=== PATIENT | male | born 1945 | race Caucasian/White ===

== ENCOUNTER 2017-10-01 15:57 | Inpatient (IN) | payer MEDICARE ==
[~2017-10-01] VITALS: Ht 170.2 cm; Wt 89.8 kg
[~2017-10-01 15:57] MED LIST: ACID1TAB3 PO; AMIO100T4 PO; AMIO200T42 PO; AMOX1TAB61 PO; APIX5TAB PO; ASPI-515 PO; ATOR40TA78 PO; CEFD300C37 PO; DOXY100T PO; ESOM40CA PO; FURO40TA6 PO; GABA-826 PO; HYDR-3307 PO; IBUP-1221 PO; LISI-170 PO; METO25TA35 PO; METO50TA82 PO; POTA20TA6 PO; PRED10TA PO; PRED20TA PO; losartin PO; morphine PO
[2017-10-01] MEDS ORDERED: ONDANSETRON 2MG/ML, 2ML IVPush ONE (16:30)
[2017-10-01] MEDS ORDERED: SODIUM CHLORIDE FLUSH 10ML SYR IVF ONE ×2 (16:30→18:00)
[2017-10-01] MEDS ORDERED: PLEASE ENTER HEIGHT AND WEIGHT MC SCH (16:30)
[2017-10-01 16:42] LABS: MEAN CORPUSCULAR HEMOGLOBIN 31.5 pg (27.5-34.5); MEAN CORPUSCULAR HGB CONC 32.5 g/dL (33.2-36.2); MEAN CORPUSCULAR VOLUME 97.1 fL (81-97); MEAN PLATELET VOLUME 9.3 fL (7.4-10.4); PLATELET COUNT 270 x10^3/uL (130-400); RED BLOOD COUNT 3.33 x10^6/uL (4.38-5.82); RED CELL DISTRIBUTION WIDTH 17.6 % (9.4-14.8)
[2017-10-01] MEDS ORDERED: NALOXONE 0.4 MG/ML, 1ML ONE (16:44)
[2017-10-01] MEDS ORDERED: ONDANSETRON 2MG/ML, 2ML ONE (16:44)
[2017-10-01 16:50] LABS: ALBUMIN 3.1 g/dL (3.4-5.0); ANION GAP 8 mmol/L (5-15); CALCIUM 7.8 mg/dL (8.5-10.1); CHLORIDE 104 mmol/L (98-107)
[2017-10-01 16:57] LABS: CREATININE 2.81 mg/dL (0.7-1.3)
[2017-10-01 16:58] LABS: BASOPHILS # (AUTO) 0.02 x10^3/uL (0-0.1); BASOPHILS % (AUTO) 0 % (0-1); EOSINOPHILS # (AUTO) 0.09 x10^3/uL (0-0.4); EOSINOPHILS % (AUTO) 1 % (1-7); LYMPHOCYTES # (AUTO) 2.01 x10^3/uL (1-3.4); LYMPHOCYTES % (AUTO) 11 % (22-44); MD SCAN; MONOCYTES % (AUTO) 2 % (2-9); NEUTROPHILS # (AUTO) 15.19 x10^3/uL (1.8-6.8); NEUTROPHILS % (AUTO) 86 % (42-75)
[2017-10-01 17:02] LABS: INTERNATIONAL NORMALIZED RATIO 0.94 (0.93-1.1); PROTHROMBIN TIME 9.7 Seconds (9.6-11.5)
[2017-10-01] MEDS ORDERED: METO25TA91 PO (17:27)
[2017-10-01] MEDS ORDERED: MORP15TA3 PO (17:31)
[2017-10-01] MEDS ORDERED: ALBU8.5H8 INH (17:32)
[2017-10-01] MEDS ORDERED: RANI150T8 PO (17:34)
[2017-10-01] MEDS ORDERED: SODIUM CHLORIDE 0.9% 1,000 ML IV ONE (17:55)
[2017-10-01] MEDS ORDERED: ONDANSETRON ODT 4 MG PO PRN (18:30)
[2017-10-01] MEDS ORDERED: DOCUSATE 100 MG CAPSULE PO PRN (18:30)
[2017-10-01] MEDS ORDERED: LIDODERM 5% PATCH TD PRN (18:30)
[2017-10-01] MEDS ORDERED: ALBUTEROL/IPRATROPIUM 2.5MG/0.5MG, 3 ML NPPB SCH (19:00)
[2017-10-01] MEDS ORDERED: PHARMACY MAY ADJ FOR RENAL FX MC PRN (19:30)
[2017-10-01] MEDS: SODIUM CHLORIDE 0.9% 1,000 ML IV SCH (19:45)
[2017-10-01] MEDS: APIXABAN 5 MG TABLET PO SCH (19:45)
[2017-10-01] MEDS: FAMOTIDINE 20 MG TABLET PO SCH (19:45)
[2017-10-01] MEDS: ATORVASTATIN 40 MG TABLET PO SCH (19:45)
[2017-10-01] MEDS: PIPERACILLIN/TAZO/PMX 3.375GM 50 ML IV SCH (19:49)
[2017-10-01 20:12] VITALS: BP 89/55
[2017-10-01] MEDS ORDERED: ALBUTEROL/IPRATROPIUM 2.5MG/0.5MG, 3 ML NPPB PRN (21:00)
[2017-10-01] MEDS ORDERED: SODIUM CHLORIDE 0.9%, 500ML IVBOLUS ONE (22:00)
[2017-10-01 22:38] VITALS: BP 98/61
[2017-10-01 22:57] LABS: TROPONIN I 0.034 ng/mL (0.000-0.045)
[2017-10-02] VITALS (7 sets, daily range): BP systolic 86–119; BP diastolic 48–69
[2017-10-02] MEDS: SODIUM CHLORIDE 0.9% 1,000 ML IV SCH ×2 (04:26→17:00)
[2017-10-02] MEDS: PIPERACILLIN/TAZO/PMX 3.375GM 50 ML IV SCH ×3 (04:26→21:38)
[2017-10-02 05:20] LABS: BASOPHILS # (AUTO) 0.15 x10^3/uL (0-0.1); BASOPHILS % (AUTO) 1 % (0-1); EOSINOPHILS # (AUTO) 0.06 x10^3/uL (0-0.4); EOSINOPHILS % (AUTO) 1 % (1-7); LYMPHOCYTES # (AUTO) 1.58 x10^3/uL (1-3.4); LYMPHOCYTES % (AUTO) 13 % (22-44); MD NO; MEAN CORPUSCULAR HEMOGLOBIN 32.3 pg (27.5-34.5); MEAN CORPUSCULAR HGB CONC 32.8 g/dL (33.2-36.2); MEAN CORPUSCULAR VOLUME 98.3 fL (81-97); MEAN PLATELET VOLUME 9.1 fL (7.4-10.4); MONOCYTES # (AUTO) 0.95 x10^3/uL (0.2-0.8); MONOCYTES % (AUTO) 8 % (2-9); NEUTROPHILS % (AUTO) 78 % (42-75); PLATELET COUNT 236 x10^3/uL (130-400); RED CELL DISTRIBUTION WIDTH 17.1 % (9.4-14.8)
[2017-10-02 05:30] LABS: ALBUMIN 2.6 g/dL (3.4-5.0); CALCIUM 7.8 mg/dL (8.5-10.1); CHLORIDE 108 mmol/L (98-107); TROPONIN I 0.022 ng/mL (0.000-0.045)
[2017-10-02 05:35] LABS: ALANINE AMINOTRANSFERASE 26 U/L (12-78); ALKALINE PHOSPHATASE 40 U/L (45-117); ANION GAP 7 mmol/L (5-15); BILIRUBIN,TOTAL 0.8 mg/dL (0.2-1.0); CREATININE 2.32 mg/dL (0.7-1.3); TOTAL PROTEIN 5.6 g/dL (6.4-8.2)
[2017-10-02] MEDS: ASPIRIN 81 MG TABLET EC PO SCH (09:22)
[2017-10-02] MEDS: APIXABAN 5 MG TABLET PO SCH ×2 (09:22→21:38)
[2017-10-02] MEDS: FAMOTIDINE 20 MG TABLET PO SCH (09:22)
[2017-10-02 09:45] LABS: ANION GAP 8 mmol/L (5-15); CALCIUM 7.5 mg/dL (8.5-10.1); CHLORIDE 110 mmol/L (98-107); CREATININE 2.03 mg/dL (0.7-1.3)
[2017-10-02] MEDS ORDERED: SODIUM CHLORIDE 0.9%, 500ML IVBOLUS ONE (13:30)
[2017-10-02] MEDS: ATORVASTATIN 40 MG TABLET PO SCH (21:37)
[2017-10-03 00:47] VITALS: BP 129/64
[2017-10-03] MEDS: SODIUM CHLORIDE 0.9% 1,000 ML IV SCH ×3 (01:57→20:05)
[2017-10-03] MEDS: PIPERACILLIN/TAZO/PMX 3.375GM 50 ML IV SCH ×3 (04:45→20:00)
[2017-10-03 05:48] LABS: BASOPHILS # (AUTO) 0.06 x10^3/uL (0-0.1); BASOPHILS % (AUTO) 1 % (0-1); EOSINOPHILS # (AUTO) 0.04 x10^3/uL (0-0.4); EOSINOPHILS % (AUTO) 0 % (1-7); LYMPHOCYTES # (AUTO) 1.22 x10^3/uL (1-3.4); LYMPHOCYTES % (AUTO) 10 % (22-44); MD NO; MEAN CORPUSCULAR HEMOGLOBIN 32.4 pg (27.5-34.5); MEAN CORPUSCULAR HGB CONC 33.2 g/dL (33.2-36.2); MEAN CORPUSCULAR VOLUME 97.8 fL (81-97); MEAN PLATELET VOLUME 9.5 fL (7.4-10.4); MONOCYTES # (AUTO) 0.87 x10^3/uL (0.2-0.8); MONOCYTES % (AUTO) 7 % (2-9); NEUTROPHILS # (AUTO) 9.49 x10^3/uL (1.8-6.8); NEUTROPHILS % (AUTO) 81 % (42-75); PLATELET COUNT 171 x10^3/uL (130-400); RED BLOOD COUNT 2.41 x10^6/uL (4.38-5.82); RED CELL DISTRIBUTION WIDTH 17.2 % (9.4-14.8)
[2017-10-03 06:10] LABS: ANION GAP 8 mmol/L (5-15); CHLORIDE 112 mmol/L (98-107)
[2017-10-03 06:13] LABS: CALCIUM 7.8 mg/dL (8.5-10.1); CREATININE 1.32 mg/dL (0.7-1.3)
[2017-10-03 08:15] VITALS: BP 138/77
[2017-10-03] MEDS: APIXABAN 5 MG TABLET PO SCH ×2 (08:43→20:01)
[2017-10-03] MEDS: ASPIRIN 81 MG TABLET EC PO SCH (08:43)
[2017-10-03] MEDS: FAMOTIDINE 20 MG TABLET PO SCH (08:43)
[2017-10-03 13:25] VITALS: BP 132/75
[2017-10-03 19:29] VITALS: BP 141/79
[2017-10-03] MEDS ORDERED: ALBUTEROL SULFATE 2.5 MG/3 ML NPPB PRN (20:00)
[2017-10-03] MEDS: AMIODARONE 200 MG TABLET PO SCH (20:00)
[2017-10-03] MEDS: ATORVASTATIN 40 MG TABLET PO SCH (20:01)
[2017-10-03] MEDS: METOPROLOL SUCCINATE 25 MG TAB.ER.24H PO SCH (20:01)
[2017-10-03 23:52] LABS: OCCULT BLOOD POSITIVE (NEGATIVE)
[2017-10-04 00:40] VITALS: BP 145/70
[2017-10-04] MEDS: SODIUM CHLORIDE 0.9% 1,000 ML IV SCH ×2 (04:08→17:30)
[2017-10-04] MEDS: PIPERACILLIN/TAZO/PMX 3.375GM 50 ML IV SCH (04:08)
[2017-10-04 05:10] LABS: BASOPHILS # (AUTO) 0.08 x10^3/uL (0-0.1); BASOPHILS % (AUTO) 1 % (0-1); EOSINOPHILS # (AUTO) 0.03 x10^3/uL (0-0.4); EOSINOPHILS % (AUTO) 0 % (1-7); LYMPHOCYTES # (AUTO) 1.23 x10^3/uL (1-3.4); LYMPHOCYTES % (AUTO) 11 % (22-44); MD NO; MEAN CORPUSCULAR HEMOGLOBIN 31.9 pg (27.5-34.5); MEAN CORPUSCULAR HGB CONC 32.8 g/dL (33.2-36.2); MEAN CORPUSCULAR VOLUME 97.2 fL (81-97); MEAN PLATELET VOLUME 9.1 fL (7.4-10.4); MONOCYTES # (AUTO) 0.93 x10^3/uL (0.2-0.8); MONOCYTES % (AUTO) 8 % (2-9); NEUTROPHILS % (AUTO) 80 % (42-75); PLATELET COUNT 223 x10^3/uL (130-400); RED BLOOD COUNT 2.38 x10^6/uL (4.38-5.82); RED CELL DISTRIBUTION WIDTH 17.2 % (9.4-14.8)
[2017-10-04 05:12] LABS: ANION GAP 4 mmol/L (5-15); CALCIUM 7.8 mg/dL (8.5-10.1); CHLORIDE 111 mmol/L (98-107); CREATININE 0.96 mg/dL (0.7-1.3)
[2017-10-04 06:55] VITALS: BP 128/60
[2017-10-04] MEDS: APIXABAN 5 MG TABLET PO SCH (09:10)
[2017-10-04] MEDS: ASPIRIN 81 MG TABLET EC PO SCH (09:11)
[2017-10-04] MEDS: AMIODARONE 200 MG TABLET PO SCH ×2 (09:12→21:14)
[2017-10-04] MEDS: FAMOTIDINE 20 MG TABLET PO SCH (09:12)
[2017-10-04] MEDS: METOPROLOL SUCCINATE 25 MG TAB.ER.24H PO SCH ×2 (09:12→21:14)
[2017-10-04 11:21] LABS: BASOPHILS # (AUTO) 0.03 x10^3/uL (0-0.1); BASOPHILS % (AUTO) 0 % (0-1); EOSINOPHILS # (AUTO) 0.04 x10^3/uL (0-0.4); EOSINOPHILS % (AUTO) 0 % (1-7); LYMPHOCYTES # (AUTO) 0.95 x10^3/uL (1-3.4); LYMPHOCYTES % (AUTO) 8 % (22-44); MD NO; MEAN CORPUSCULAR HEMOGLOBIN 31.5 pg (27.5-34.5); MEAN CORPUSCULAR HGB CONC 32.4 g/dL (33.2-36.2); MEAN CORPUSCULAR VOLUME 97.1 fL (81-97); MEAN PLATELET VOLUME 8.7 fL (7.4-10.4); MONOCYTES # (AUTO) 0.68 x10^3/uL (0.2-0.8); MONOCYTES % (AUTO) 6 % (2-9); NEUTROPHILS # (AUTO) 10.31 x10^3/uL (1.8-6.8); NEUTROPHILS % (AUTO) 86 % (42-75); PLATELET COUNT 252 x10^3/uL (130-400); RED BLOOD COUNT 2.51 x10^6/uL (4.38-5.82); RED CELL DISTRIBUTION WIDTH 17.2 % (9.4-14.8)
[2017-10-04] MEDS: AMPICILLIN/SULBACTAM 3 GM in SODIUM CHLORIDE 0.9% 100 ML IV SCH ×2 (11:42→20:23)
[2017-10-04] MEDS: TAMSULOSIN 0.4 MG CAP.ER.24H PO SCH (11:42)
[2017-10-04 11:53] LABS: FOLATE LEVEL 9.3 ng/mL (3.1-17.5)
[2017-10-04 12:10] LABS: CULTURE INDICATED? YES; MICROSCOPIC INDICATED
[2017-10-04] MEDS ORDERED: BISACODYL 5 MG EC TABLET PO ONE (14:00)
[2017-10-04 14:18] VITALS: BP 126/69
[2017-10-04 18:00] LABS: BASOPHILS # (AUTO) 0.04 x10^3/uL (0-0.1); BASOPHILS % (AUTO) 0 % (0-1); EOSINOPHILS % (AUTO) 0 % (1-7); LYMPHOCYTES # (AUTO) 0.88 x10^3/uL (1-3.4); LYMPHOCYTES % (AUTO) 8 % (22-44); MD NO; MEAN CORPUSCULAR HEMOGLOBIN 32.2 pg (27.5-34.5); MEAN CORPUSCULAR HGB CONC 33.4 g/dL (33.2-36.2); MEAN CORPUSCULAR VOLUME 96.5 fL (81-97); MEAN PLATELET VOLUME 8.6 fL (7.4-10.4); MONOCYTES # (AUTO) 0.16 x10^3/uL (0.2-0.8); MONOCYTES % (AUTO) 2 % (2-9); NEUTROPHILS % (AUTO) 90 % (42-75); PLATELET COUNT 265 x10^3/uL (130-400); RED BLOOD COUNT 2.53 x10^6/uL (4.38-5.82); RED CELL DISTRIBUTION WIDTH 16.4 % (9.4-14.8)
[2017-10-04 19:11] VITALS: BP 178/94
[2017-10-04 21:12] VITALS: BP 149/65
[2017-10-04] MEDS: ATORVASTATIN 40 MG TABLET PO SCH (21:13)
[2017-10-05 00:59] VITALS: BP 123/69
[2017-10-05 03:19] LABS: MEAN CORPUSCULAR HEMOGLOBIN 31.3 pg (27.5-34.5); MEAN CORPUSCULAR HGB CONC 32.7 g/dL (33.2-36.2); MEAN CORPUSCULAR VOLUME 95.8 fL (81-97); MEAN PLATELET VOLUME 8.6 fL (7.4-10.4); PLATELET COUNT 246 x10^3/uL (130-400); RED BLOOD COUNT 2.25 x10^6/uL (4.38-5.82)
[2017-10-05 03:25] LABS: ANION GAP 7 mmol/L (5-15); CALCIUM 7.5 mg/dL (8.5-10.1); CHLORIDE 113 mmol/L (98-107); CREATININE 0.91 mg/dL (0.7-1.3)
[2017-10-05] MEDS: AMPICILLIN/SULBACTAM 3 GM in SODIUM CHLORIDE 0.9% 100 ML IV SCH ×4 (03:43→22:56)
[2017-10-05] MEDS: SODIUM CHLORIDE 0.9% 1,000 ML IV SCH ×2 (03:43→17:08)
[2017-10-05 03:51] LABS: BASOPHILS # (AUTO) 0.13 x10^3/uL (0-0.1); BASOPHILS % (AUTO) 1 % (0-1); EOSINOPHILS # (AUTO) 0.02 x10^3/uL (0-0.4); EOSINOPHILS % (AUTO) 0 % (1-7); LYMPHOCYTES # (AUTO) 1.79 x10^3/uL (1-3.4); LYMPHOCYTES % (AUTO) 18 % (22-44); MD SCAN; MONOCYTES # (AUTO) 1.04 x10^3/uL (0.2-0.8); MONOCYTES % (AUTO) 10 % (2-9); NEUTROPHILS # (AUTO) 7.12 x10^3/uL (1.8-6.8); NEUTROPHILS % (AUTO) 71 % (42-75)
[2017-10-05] MEDS: ACETAMINOPHEN 325 MG TABLET PO PRN ×3 (06:10→22:56)
[2017-10-05] MEDS: METOPROLOL SUCCINATE 25 MG TAB.ER.24H PO SCH ×2 (08:59→20:10)
[2017-10-05] MEDS: AMIODARONE 200 MG TABLET PO SCH ×2 (08:59→20:10)
[2017-10-05] MEDS: FAMOTIDINE 20 MG TABLET PO SCH ×2 (09:00→20:10)
[2017-10-05] MEDS: TAMSULOSIN 0.4 MG CAP.ER.24H PO SCH (09:00)
[2017-10-05 09:07] VITALS: BP 161/77
[2017-10-05 10:53] LABS: BASOPHILS # (AUTO) 0.02 x10^3/uL (0-0.1); BASOPHILS % (AUTO) 0 % (0-1); EOSINOPHILS # (AUTO) 0.05 x10^3/uL (0-0.4); EOSINOPHILS % (AUTO) 1 % (1-7); LYMPHOCYTES # (AUTO) 1.39 x10^3/uL (1-3.4); LYMPHOCYTES % (AUTO) 13 % (22-44); MD NO; MEAN CORPUSCULAR HEMOGLOBIN 31.9 pg (27.5-34.5); MEAN CORPUSCULAR VOLUME 96.8 fL (81-97); MEAN PLATELET VOLUME 8.6 fL (7.4-10.4); MONOCYTES # (AUTO) 0.92 x10^3/uL (0.2-0.8); MONOCYTES % (AUTO) 8 % (2-9); NEUTROPHILS # (AUTO) 8.61 x10^3/uL (1.8-6.8); NEUTROPHILS % (AUTO) 78 % (42-75); PLATELET COUNT 252 x10^3/uL (130-400); RED BLOOD COUNT 2.39 x10^6/uL (4.38-5.82); RED CELL DISTRIBUTION WIDTH 16.5 % (9.4-14.8)
[2017-10-05 13:37] VITALS: BP 162/88
[2017-10-05] MEDS: GOLYTELY 4,000ML ORAL.SOL PO SCH (18:37)
[2017-10-05 19:03] LABS: MEAN CORPUSCULAR HEMOGLOBIN 32.3 pg (27.5-34.5); MEAN CORPUSCULAR HGB CONC 33.3 g/dL (33.2-36.2); MEAN CORPUSCULAR VOLUME 97.1 fL (81-97); PLATELET COUNT 280 x10^3/uL (130-400); RED BLOOD COUNT 2.55 x10^6/uL (4.38-5.82); RED CELL DISTRIBUTION WIDTH 17.5 % (9.4-14.8)
[2017-10-05 19:39] VITALS: BP 170/82
[2017-10-05 19:44] LABS: MD MORPH REVIEW ONLY
[2017-10-05 19:45] LABS: ANISOCYTOSIS 2+; BASOPHILS # (AUTO) 0.03 x10^3/uL (0-0.1); BASOPHILS % (AUTO) 0 % (0-1); EOSINOPHILS % (AUTO) 0 % (1-7); LYMPHOCYTES # (AUTO) 1.17 x10^3/uL (1-3.4); LYMPHOCYTES % (AUTO) 14 % (22-44); MONOCYTES % (AUTO) 4 % (2-9); NEUTROPHILS # (AUTO) 7.06 x10^3/uL (1.8-6.8); NEUTROPHILS % (AUTO) 83 % (42-75); POLYCHROMASIA 1+
[2017-10-05 19:46] LABS: <PLATELET ESTIMATE> ADEQUATE; <PLT MORPHOLOGY> NORMAL PLT MORPH; SCHISTOCYTES 1+; SPHEROCYTES 1+
[2017-10-05] MEDS: ATORVASTATIN 40 MG TABLET PO SCH (20:10)
[2017-10-06 02:59] VITALS: BP 160/80
[2017-10-06 03:13] LABS: BASOPHILS # (AUTO) 0.02 x10^3/uL (0-0.1); BASOPHILS % (AUTO) 0 % (0-1); EOSINOPHILS # (AUTO) 0.01 x10^3/uL (0-0.4); EOSINOPHILS % (AUTO) 0 % (1-7); LYMPHOCYTES % (AUTO) 18 % (22-44); MD NO; MEAN CORPUSCULAR HEMOGLOBIN 31.9 pg (27.5-34.5); MEAN CORPUSCULAR HGB CONC 32.8 g/dL (33.2-36.2); MEAN CORPUSCULAR VOLUME 97.3 fL (81-97); MEAN PLATELET VOLUME 8.3 fL (7.4-10.4); MONOCYTES # (AUTO) 0.95 x10^3/uL (0.2-0.8); MONOCYTES % (AUTO) 10 % (2-9); NEUTROPHILS % (AUTO) 72 % (42-75); PLATELET COUNT 267 x10^3/uL (130-400); RED BLOOD COUNT 2.49 x10^6/uL (4.38-5.82); RED CELL DISTRIBUTION WIDTH 17.3 % (9.4-14.8)
[2017-10-06] MEDS: AMPICILLIN/SULBACTAM 3 GM in SODIUM CHLORIDE 0.9% 100 ML IV SCH ×4 (05:09→23:19)
[2017-10-06] MEDS: SODIUM CHLORIDE 0.9% 1,000 ML IV SCH ×2 (05:10→17:07)
[2017-10-06 05:30] LABS: ANION GAP 6 mmol/L (5-15); CALCIUM 7.7 mg/dL (8.5-10.1); CHLORIDE 113 mmol/L (98-107)
[2017-10-06 05:31] LABS: CREATININE 0.99 mg/dL (0.7-1.3)
[2017-10-06] MEDS: GOLYTELY 4,000ML ORAL.SOL PO SCH (06:03)
[2017-10-06 06:12] LABS: MEAN CORPUSCULAR HGB CONC 33.1 g/dL (33.2-36.2); MEAN CORPUSCULAR VOLUME 96.8 fL (81-97); MEAN PLATELET VOLUME 8.9 fL (7.4-10.4); PLATELET COUNT 255 x10^3/uL (130-400); RED BLOOD COUNT 2.47 x10^6/uL (4.38-5.82); RED CELL DISTRIBUTION WIDTH 17.3 % (9.4-14.8)
[2017-10-06 06:13] LABS: MD YES
[2017-10-06 06:24] LABS: LYMPH#(MANUAL) 2.23 x10^3/uL (1-3.4); LYMPHS% (MANUAL) 21 % (22-44); METAMYELOCYTES# (MANUAL) 0.32 x10^3/uL (0-0); METAMYELOCYTES% (MANUAL) 3 % (0-1); MONOS#(MANUAL) 1.38 x10^3/uL (0.3-2.7); MONOS% (MANUAL) 13 % (2-9); SEG#(MANUAL) 6.68 x10^3/uL (1.8-6.8); SEGS% (MANUAL) 63 % (42-75)
[2017-10-06 06:26] LABS: <PLATELET ESTIMATE> ADEQUATE; <PLT MORPHOLOGY> NORMAL PLT MORPH; ANISOCYTOSIS 1+; POLYCHROMASIA 1+; SCHISTOCYTES 1+
[2017-10-06 08:22] VITALS: BP 189/92
[2017-10-06] MEDS ORDERED: LABETALOL 20 MG/4 ML ONE (10:00)
[2017-10-06] MEDS ORDERED: PROPOFOL 10 MG/ML, 20ML ONE (10:00)
[2017-10-06] MEDS ORDERED: LABETALOL 5MG/ML, 20ML ONE (10:00)
[2017-10-06] MEDS ORDERED: MORPHINE SULFATE 4 MG/ML, 1ML ONE (11:22)
[2017-10-06] MEDS ORDERED: ONDANSETRON 2MG/ML, 2ML IVPush PRN (11:30)
[2017-10-06] MEDS ORDERED: ALBUTEROL/IPRATROPIUM 2.5MG/0.5MG, 3 ML NPPB PRN (11:30)
[2017-10-06] MEDS ORDERED: ACETAMINOPHEN 325 MG TABLET PO PRN (11:30)
[2017-10-06] MEDS ORDERED: HYDROcodone/APAP 7.5-325MG/15ML UDC PO PRN (11:30)
[2017-10-06] MEDS ORDERED: hydrALAzine 20 MG/ML, 1ML IV PRN (11:30)
[2017-10-06] MEDS ORDERED: LABETALOL 5MG/ML, 20ML IV PRN (11:30)
[2017-10-06] MEDS ORDERED: FENTANYL PF 100 MCG/2ML IV PRN (11:30)
[2017-10-06] MEDS ORDERED: OXYcodone 5 MG/5 ML ORAL.SOL UDC PO PRN (11:30)
[2017-10-06] MEDS ORDERED: ACETAMINOPHEN 650 MG/20.3 ML UDC ONE (11:35)
[2017-10-06] MEDS ORDERED: OXYcodone 5 MG/5 ML ORAL.SOL UDC ONE (11:35)
[2017-10-06] MEDS: FAMOTIDINE 20 MG TABLET PO SCH ×2 (12:29→21:49)
[2017-10-06] MEDS: TAMSULOSIN 0.4 MG CAP.ER.24H PO SCH ×2 (12:29→21:49)
[2017-10-06] MEDS: AMIODARONE 200 MG TABLET PO SCH ×2 (12:29→21:48)
[2017-10-06] MEDS: METOPROLOL SUCCINATE 25 MG TAB.ER.24H PO SCH ×2 (12:29→21:50)
[2017-10-06 12:52] VITALS: BP 152/69
[2017-10-06 13:48] LABS: MEAN CORPUSCULAR HEMOGLOBIN 31.9 pg (27.5-34.5); MEAN CORPUSCULAR HGB CONC 32.8 g/dL (33.2-36.2); MEAN CORPUSCULAR VOLUME 97.4 fL (81-97); MEAN PLATELET VOLUME 8.1 fL (7.4-10.4); PLATELET COUNT 255 x10^3/uL (130-400); RED BLOOD COUNT 2.32 x10^6/uL (4.38-5.82); RED CELL DISTRIBUTION WIDTH 17.1 % (9.4-14.8)
[2017-10-06 14:18] LABS: BASOPHILS # (AUTO) 0.07 x10^3/uL (0-0.1); BASOPHILS % (AUTO) 1 % (0-1); EOSINOPHILS # (AUTO) 0.04 x10^3/uL (0-0.4); EOSINOPHILS % (AUTO) 0 % (1-7); LYMPHOCYTES # (AUTO) 1.57 x10^3/uL (1-3.4); LYMPHOCYTES % (AUTO) 18 % (22-44); MD SCAN; MONOCYTES # (AUTO) 0.82 x10^3/uL (0.2-0.8); MONOCYTES % (AUTO) 9 % (2-9); NEUTROPHILS # (AUTO) 6.44 x10^3/uL (1.8-6.8); NEUTROPHILS % (AUTO) 72 % (42-75)
[2017-10-06 19:03] LABS: BASOPHILS % (AUTO) 0 % (0-1); EOSINOPHILS % (AUTO) 0 % (1-7); LYMPHOCYTES # (AUTO) 0.67 x10^3/uL (1-3.4); LYMPHOCYTES % (AUTO) 8 % (22-44); MD NO; MEAN CORPUSCULAR HEMOGLOBIN 32.2 pg (27.5-34.5); MEAN CORPUSCULAR HGB CONC 33.2 g/dL (33.2-36.2); MEAN CORPUSCULAR VOLUME 96.9 fL (81-97); MEAN PLATELET VOLUME 7.9 fL (7.4-10.4); MONOCYTES # (AUTO) 0.04 x10^3/uL (0.2-0.8); MONOCYTES % (AUTO) 1 % (2-9); NEUTROPHILS # (AUTO) 7.68 x10^3/uL (1.8-6.8); NEUTROPHILS % (AUTO) 92 % (42-75); PLATELET COUNT 285 x10^3/uL (130-400); RED BLOOD COUNT 2.63 x10^6/uL (4.38-5.82); RED CELL DISTRIBUTION WIDTH 17.4 % (9.4-14.8)
[2017-10-06 20:48] VITALS: BP 168/84
[2017-10-06] MEDS: ATORVASTATIN 40 MG TABLET PO SCH (21:49)
[2017-10-06] MEDS: ACETAMINOPHEN 325 MG TABLET PO PRN (21:50)
[2017-10-07 01:30] VITALS: BP 143/71
[2017-10-07] MEDS: SODIUM CHLORIDE 0.9% 1,000 ML IV SCH (05:12)
[2017-10-07] MEDS: AMPICILLIN/SULBACTAM 3 GM in SODIUM CHLORIDE 0.9% 100 ML IV SCH ×4 (05:12→22:49)
[2017-10-07 05:15] LABS: ANION GAP 5 mmol/L (5-15); CALCIUM 7.3 mg/dL (8.5-10.1); CHLORIDE 111 mmol/L (98-107)
[2017-10-07 05:16] LABS: MEAN CORPUSCULAR HEMOGLOBIN 31.7 pg (27.5-34.5); MEAN CORPUSCULAR HGB CONC 32.6 g/dL (33.2-36.2); MEAN CORPUSCULAR VOLUME 97.3 fL (81-97); MEAN PLATELET VOLUME 8.1 fL (7.4-10.4); PLATELET COUNT 245 x10^3/uL (130-400); RED BLOOD COUNT 2.32 x10^6/uL (4.38-5.82); RED CELL DISTRIBUTION WIDTH 17.5 % (9.4-14.8)
[2017-10-07 05:33] LABS: CREATININE 0.86 mg/dL (0.7-1.3)
[2017-10-07 06:05] LABS: BASOPHILS # (AUTO) 0.02 x10^3/uL (0-0.1); BASOPHILS % (AUTO) 0 % (0-1); EOSINOPHILS # (AUTO) 0.01 x10^3/uL (0-0.4); EOSINOPHILS % (AUTO) 0 % (1-7); LYMPHOCYTES # (AUTO) 1.32 x10^3/uL (1-3.4); LYMPHOCYTES % (AUTO) 18 % (22-44); MD SCAN; MONOCYTES # (AUTO) 0.64 x10^3/uL (0.2-0.8); MONOCYTES % (AUTO) 9 % (2-9); NEUTROPHILS # (AUTO) 5.48 x10^3/uL (1.8-6.8); NEUTROPHILS % (AUTO) 73 % (42-75)
[2017-10-07 09:00] VITALS: BP 186/78
[2017-10-07] MEDS: METOPROLOL SUCCINATE 25 MG TAB.ER.24H PO SCH ×2 (09:04→21:18)
[2017-10-07] MEDS: TAMSULOSIN 0.4 MG CAP.ER.24H PO SCH ×2 (09:05→21:18)
[2017-10-07] MEDS: AMIODARONE 200 MG TABLET PO SCH ×2 (09:05→21:18)
[2017-10-07] MEDS: FINASTERIDE 5 MG TABLET PO SCH (09:05)
[2017-10-07] MEDS: FAMOTIDINE 20 MG TABLET PO SCH ×2 (09:05→21:18)
[2017-10-07 10:15] VITALS: BP 179/76
[2017-10-07] MEDS: AMLODIPINE 5 MG TABLET PO SCH (10:31)
[2017-10-07 12:02] LABS: CREATININE,URINE RANDOM 66.4 mg/dL
[2017-10-07 14:46] VITALS: BP 157/84
[2017-10-07 19:11] VITALS: BP 118/69
[2017-10-07] MEDS: ATORVASTATIN 40 MG TABLET PO SCH (21:00)
[2017-10-08 01:08] VITALS: BP 152/79
[2017-10-08] MEDS: AMPICILLIN/SULBACTAM 3 GM in SODIUM CHLORIDE 0.9% 100 ML IV SCH (05:31)
[2017-10-08 06:35] VITALS: BP 166/80
[2017-10-08] MEDS: TAMSULOSIN 0.4 MG CAP.ER.24H PO SCH (08:30)
[2017-10-08] MEDS: AMIODARONE 200 MG TABLET PO SCH (08:31)
[2017-10-08] MEDS: METOPROLOL SUCCINATE 25 MG TAB.ER.24H PO SCH (08:31)
[2017-10-08] MEDS: FAMOTIDINE 20 MG TABLET PO SCH (08:31)
[2017-10-08] MEDS: AMLODIPINE 5 MG TABLET PO SCH (08:31)
[2017-10-08] MEDS: FINASTERIDE 5 MG TABLET PO SCH (08:34)
[2017-10-08] MEDS ORDERED: SULF1TAB24 PO (08:52)
[2017-10-08] MEDS ORDERED: AMLO5TAB4 PO (09:00)
[2017-10-08 09:19] LABS: ALANINE AMINOTRANSFERASE 22 U/L (12-78); ALBUMIN 2.4 g/dL (3.4-5.0); ANION GAP 7 mmol/L (5-15); CALCIUM 7.5 mg/dL (8.5-10.1); CHLORIDE 106 mmol/L (98-107); CREATININE 1.19 mg/dL (0.7-1.3)
[2017-10-08 09:22] LABS: ALKALINE PHOSPHATASE 39 U/L (45-117); BILIRUBIN,TOTAL 0.4 mg/dL (0.2-1.0); TOTAL PROTEIN 5.2 g/dL (6.4-8.2)
[2017-10-08 09:34] LABS: BASOPHILS # (AUTO) 0.02 x10^3/uL (0-0.1); BASOPHILS % (AUTO) 0 % (0-1); EOSINOPHILS # (AUTO) 0.03 x10^3/uL (0-0.4); EOSINOPHILS % (AUTO) 0 % (1-7); LYMPHOCYTES # (AUTO) 1.84 x10^3/uL (1-3.4); LYMPHOCYTES % (AUTO) 19 % (22-44); MD MORPH REVIEW ONLY; MEAN CORPUSCULAR HEMOGLOBIN 31.6 pg (27.5-34.5); MEAN CORPUSCULAR HGB CONC 32.7 g/dL (33.2-36.2); MEAN CORPUSCULAR VOLUME 96.9 fL (81-97); MEAN PLATELET VOLUME 7.7 fL (7.4-10.4); MONOCYTES # (AUTO) 0.81 x10^3/uL (0.2-0.8); MONOCYTES % (AUTO) 8 % (2-9); NEUTROPHILS # (AUTO) 7.18 x10^3/uL (1.8-6.8); NEUTROPHILS % (AUTO) 73 % (42-75); PLATELET COUNT 293 x10^3/uL (130-400); RED BLOOD COUNT 2.76 x10^6/uL (4.38-5.82); RED CELL DISTRIBUTION WIDTH 17.9 % (9.4-14.8)
[2017-10-08 09:35] LABS: ANISOCYTOSIS 1+; POLYCHROMASIA 1+
[2017-10-08 09:36] LABS: <PLATELET ESTIMATE> ADEQUATE; <PLT MORPHOLOGY> NORMAL PLT MORPH
[2017-10-08] MEDS ORDERED: POTASSIUM CHLORIDE 20 MEQ TAB.ER.PRT PO ONE (10:30)
[2017-10-08] MEDS ORDERED: FINA5TAB4 PO (13:50)
[2017-10-08] MEDS ORDERED: TAMS-11 PO (13:50)
== END 2017-10-08 15:26 | disposition home health service (06) | DRG 917 ==
LOC: ED 16:51 → EDIP 17:39 → 4WST 18:28
PROVIDERS: ADMIT Internal Medicine; ATTEND Internal Medicine
PROC: 0T9B70Z Drainage of Bladder with Drainage Device, Via Natural or Artificial Opening (ICD-10-PCS; principal; 2017-10-04)
PROC: 0DJ08ZZ Inspection of Upper Intestinal Tract, Via Natural or Artificial Opening Endoscopic (ICD-10-PCS; 2017-10-05)
PROC: 0DBH8ZZ Excision of Cecum, Via Natural or Artificial Opening Endoscopic (ICD-10-PCS; 2017-10-05)
PROC: 0DBN8ZZ Excision of Sigmoid Colon, Via Natural or Artificial Opening Endoscopic (ICD-10-PCS; 2017-10-05)
PROC: 0DBL8ZZ Excision of Transverse Colon, Via Natural or Artificial Opening Endoscopic (ICD-10-PCS; 2017-10-05)
PROC: 0D598ZZ Destruction of Duodenum, Via Natural or Artificial Opening Endoscopic (ICD-10-PCS; 2017-10-05)
DX: T40.601A Poisoning by unspecified narcotics, accidental (unintentional), initial encounter (principal); G92 Toxic encephalopathy; N17.0 Acute kidney failure with tubular necrosis; J69.0 Pneumonitis due to inhalation of food and vomit; J96.21 Acute and chronic respiratory failure with hypoxia; D62 Acute posthemorrhagic anemia; E86.0 Dehydration; I50.32 Chronic diastolic (congestive) heart failure; I11.0 Hypertensive heart disease with heart failure; I48.91 Unspecified atrial fibrillation; D12.3 Benign neoplasm of transverse colon; D12.5 Benign neoplasm of sigmoid colon; E86.1 Hypovolemia; G89.29 Other chronic pain; I25.2 Old myocardial infarction; K21.9 Gastro-esophageal reflux disease without esophagitis; K31.819 Angiodysplasia of stomach and duodenum without bleeding; K44.9 Diaphragmatic hernia without obstruction or gangrene; K57.30 Diverticulosis of large intestine without perforation or abscess without bleeding; Y92.89 Other specified places as the place of occurrence of the external cause; N40.1 Benign prostatic hyperplasia with lower urinary tract symptoms; R31.0 Gross hematuria; R33.8 Other retention of urine; Z79.891 Long term (current) use of opiate analgesic; Z82.49 Family history of ischemic heart disease and other diseases of the circulatory system; Z87.01 Personal history of pneumonia (recurrent); Z87.442 Personal history of urinary calculi; Z87.891 Personal history of nicotine dependence; Z99.81 Dependence on supplemental oxygen
CPT/HCPCS: 36415; 70450; 71045; 74230; 76770; 80048; 80053; 81001; 82040; 82140; 82272; 82570; 82728; 82746; 83540; 83550; 83605; 83735; 83880; 84100; 84156; 84484; 85014; 85018; 85025; 85610; 85730; 86850; 86900; 87040; 87086; 88305; 93005; 96374; J0295; J2405; J2543; J2704; J3490; J7030; J7040; J7512